=== PATIENT | male | born 1940 | race Caucasian/White ===

== ENCOUNTER 2020-09-29 05:34 | Day surgery (SDC) | payer OTHER ==
[2020-09-29] MEDS ORDERED: Lactated Ringers 1,000 ML IV SCH (06:00)
[2020-09-29] MEDS ORDERED: Nozin Nasal Sanitizer NASBOTH SCH (06:00)
[2020-09-29] MEDS ORDERED: Bupivacaine 0.5% 30 ML SDV ONE (06:43)
[2020-09-29] MEDS ORDERED: Povidone-Iodine 10% Soln 118.25 ML Bottle ONE (06:43)
[2020-09-29] MEDS ORDERED: fentaNYL 100 MCG/2 ML SDV ONE (07:24)
[2020-09-29] MEDS ORDERED: Midazolam 1 MG/ML 2 ML SDV ONE (07:24)
[2020-09-29] MEDS ORDERED: Propofol 200 MG/20 ML SDV ONE (07:25)
[2020-09-29] MEDS ORDERED: ceFAZolin 2 GM in Premix Bag 1 BAG IV ONE (07:30)
[2020-09-29] MEDS ORDERED: ceFAZolin 2 GM in Sodium Chloride 0.9% 50 ML IV ONE (07:30)
[2020-09-29] MEDS: Tranexamic Acid 1,000 MG in Sodium Chloride 0.9% 50 ML IV ONE ×2 (07:38→12:28)
[2020-09-29] MEDS ORDERED: Lactated Ringers 1,000 ML ONE (08:03)
[2020-09-29] MEDS ORDERED: Sugammadex Sodium 200 MG/2 ML VIAL ONE (09:01)
[2020-09-29] MEDS ORDERED: Magnesium Hydroxide 400 MG/5 ML Susp 30 ML Cup PO PRN (09:14)
[2020-09-29] MEDS ORDERED: Morphine 2 MG/ML SYRINGE IVPUSH PRN (09:14)
[2020-09-29] MEDS ORDERED: Docusate Sodium 100 MG Cap PO PRN (09:14)
[2020-09-29] MEDS ORDERED: Acetaminophen/HYDROcodone 325-5 MG Tab PO PRN (09:14)
[2020-09-29] MEDS ORDERED: Ondansetron 4 MG/2 ML SDV IVPUSH PRN (09:14)
[2020-09-29] MEDS ORDERED: Acetaminophen 325 MG Tab PO PRN (09:14)
[2020-09-29] MEDS ORDERED: ceFAZolin 1 GM in Sodium Chloride 0.9% 50 ML IV SCH (09:15)
[2020-09-29] MEDS ORDERED: Sodium Chloride 0.9% 1,000 ML IV SCH (09:15)
[2020-09-29] MEDS ORDERED: Albuterol 0.083% 2.5 MG/3 ML Neb Soln NEB PRN (09:21)
[2020-09-29] MEDS ORDERED: [UNRECOGNIZED DRUG - OTHER] PO PRN (09:21)
[2020-09-29] MEDS ORDERED: CARBOXYMETHYLCELLULOSE EYEBOTH PRN (09:21)
--- NOTE | 2020-09-29 09:35 | CR ---
Knee 1V or 2V Lt CLINICAL HISTORY: Postop FINDINGS: Patient has undergone a medial left knee hemiarthroplasty. Components appear well seated. There is some intra-articular and subcutaneous air. There is some patellar and periarticular spurring. IMPRESSION: STATUS post recent medial knee hemiarthroplasty Osteoarthritic changes
[2020-09-29] MEDS ORDERED: Hypromellose 0.3% Ophth Soln 15 ML Bottle EYEBOTH PRN (10:36)
[2020-09-29] MEDS ORDERED: Pseudoephedrine 30 MG Tab PO PRN (11:00)
[2020-09-29] MEDS: Acetaminophen/oxyCODONE 325-5 MG Tab PO PRN ×3 (11:31→20:27)
[2020-09-29] MEDS: Albuterol 8 GM Inhaler INH SCH ×3 (11:33→20:21)
[2020-09-29] MEDS: Diltiazem 180 MG Cap.CD PO SCH (12:45)
[2020-09-29] MEDS: Ipratropium 0.06% Nasal Spray 15 ML Bottle NASBOTH SCH ×2 (14:19→20:16)
[2020-09-29] MEDS: ceFAZolin 1 GM in Premix Bag 1 BAG IV SCH ×2 (14:21→22:23)
[2020-09-29] MEDS: Hypromellose 0.3% Ophth Soln 15 ML Bottle EYEBOTH SCH ×2 (16:21→22:23)
[2020-09-29] MEDS: Nozin Nasal Sanitizer NASBOTH SCH (20:15)
[2020-09-29] MEDS: Docusate Sodium 100 MG Cap PO SCH (20:17)
[2020-09-29] MEDS: Metoprolol Tartrate 25 MG Tab PO SCH (20:18)
[2020-09-29] MEDS: Famotidine 20 MG Tab PO SCH (20:20)
[2020-09-29] MEDS ORDERED: Simvastatin 20 MG Tab PO SCH (21:00)
[2020-09-29] MEDS ORDERED: Montelukast 10 MG Tab PO SCH (21:00)
[2020-09-30] MEDS: Acetaminophen/oxyCODONE 325-5 MG Tab PO PRN ×2 (05:15→11:33)
[2020-09-30] MEDS: Hypromellose 0.3% Ophth Soln 15 ML Bottle EYEBOTH SCH ×2 (05:28→09:40)
[2020-09-30] MEDS: ceFAZolin 1 GM in Premix Bag 1 BAG IV SCH (05:34)
[2020-09-30] MEDS ORDERED: Tiotropium Bromide 4 GM Inhalation Spray (2.5mcg/1 dose; 10 doses) INH SCH (07:00)
[2020-09-30] MEDS: Albuterol 8 GM Inhaler INH SCH ×3 (07:19→14:39)
[2020-09-30] MEDS ORDERED: Enoxaparin 30 MG/0.3 ML Syringe SUBCUT SCH (09:00)
[2020-09-30] MEDS ORDERED: Hydrochlorothiazide 25 MG Tab PO SCH (09:00)
[2020-09-30] MEDS ORDERED: DILTIAZEM 120 MG PO SCH (09:00)
[2020-09-30] MEDS ORDERED: guaiFENesin 600 MG Tab.ER PO SCH (09:00)
[2020-09-30] MEDS ORDERED: Non-Formulary Medication 1 Each (Lisinopril [Lisinopril] 40 MG Tablet) PO SCH (09:00)
[2020-09-30] MEDS ORDERED: Loratadine 10 MG Tab PO SCH (09:00)
[2020-09-30] MEDS ORDERED: LECITHIN PO SCH (09:00)
[2020-09-30] MEDS ORDERED: Isosorbide Mononitrate 30 MG Tab.ER PO SCH (09:00)
[2020-09-30] MEDS ORDERED: Fluticasone Propionate Nasal Spray 16 GM Bottle NASBOTH SCH (09:00)
[2020-09-30] MEDS ORDERED: Non-Formulary Medication 1 Each (Isosorbide Mononitrate [Imdur] 60 MG Tab.Er) PO SCH (09:00)
[2020-09-30] MEDS ORDERED: Lisinopril 20 MG Tab PO SCH (09:00)
[2020-09-30] MEDS: Metoprolol Tartrate 25 MG Tab PO SCH (09:35)
[2020-09-30] MEDS: Famotidine 20 MG Tab PO SCH (09:35)
[2020-09-30] MEDS: Diltiazem 180 MG Cap.CD PO SCH (09:38)
[2020-09-30] MEDS: Docusate Sodium 100 MG Cap PO SCH (09:39)
[2020-09-30] MEDS: Ipratropium 0.06% Nasal Spray 15 ML Bottle NASBOTH SCH ×2 (09:40→14:59)
[2020-09-30] MEDS: Nozin Nasal Sanitizer NASBOTH SCH (09:41)
--- NOTE | 2020-09-30 12:22 | PCM.DCSUM1 ---
Discharge Summary - Hospital Course Brief History: Patient is a pleasant 79 y/o male, who had worsening left knee pain from osteoarthritis over the past 5 years. Failed conservative management with OTC medications and injections. After reviewing clinical symptoms of mostly medial pain in knee joint and radiographic findings consistent with DJD with medial collapse, patient was deemed a good candidate for a partial knee replacement of the medial compartment. Patient elected to undergo partial replacement, with agreement to convert to total knee replacement if cartilage damage was more severe than what xrays had shown. Intra-operative decision made to proceed with medial compartment partial replacement, as other compartments were well persevered. Diagnosis: Stroke: No Modified [place] Scale: No Symptoms at All Modified [place] Scale Score: 0 - Discharge Data Discharge Date: 09/30/20 Discharge Disposition: Home, W Home Health Agency 06 Condition: Good - Referral to Home Health Date of Face to Face Encounter: 09/30/20 Reason for Homebound Status: Motivated to go home; able to ambulate with FWW safely and perform ADLs fairly independently. Primary Care Physician: Abrahan Berumen PA-C Skilled Need: physical therapy: s/p L partial knee replacement. Work on ROM of knee, strengthening, progressing ambulation status. occupational therapy: assist as needed with ADLs, dressing changes - Discharge Diagnosis/Problem(s) (1) Status post left partial knee replacement SNOMED Code(s): 370083580, [id number], [id number], [id number] ICD Code: Z96.652 - PRESENCE OF LEFT ARTIFICIAL KNEE JOINT Status: Acute Current Visit: Yes - Patient Summary/Data Operative Procedure(s) Performed: left partial knee replacement, medial compartment Consults: Consultations 09/29/20 09:14 Consult to Case Management/Smash Hand [CONS] Routine Comment: Physician Instructions: Service(s) to be Consulted: Case Management Reason for Consult: Plan for Discharge OT Evaluation and Treatment [CONS] Routine Please Evaluate and Treat. OT Reason for Consult: ADL's Special Instructions: s/p L partial knee replacement This query below is only for informational purposes and is not editable. PT Evaluation and Treatment [CONS] Routine Please Evaluate and Treat. PT Reason for Consult: Post op Ortho Surgery Special Instructions: s/p L partial knee replacement This query below is only for informational purposes and is not editable. PT Evaluation and Treatment [CONS] Routine Please Evaluate and Treat. PT Reason for Consult: Post op Ortho Surgery Knee Pending Discharge: Yes, 1- 2 days Special Instructions: Schedule first outpatient PT appointment in 3-5 day post discharge. This query below is only for informational purposes and is not editable. Hospital Course: Patient is a pleasant 79 y/o male, s/p left partial knee replacement (medial compartment), POD#1. Patient tolerated surgery well with no complications. Endorsed minimal pain in left knee at rest, increased pain with activity and ambulation. Reports pain is well managed at this time with Percocet. Denied numbness or tingling in L LE. Slept well overnight with no disruptions from pain. Following surgery yesterday afternoon, worked with physical therapy on ROM and ambulation with FWW. Flexion achieved to 78 degrees and ambulated 100+ft with FWW multiple times with staff yesterday following surgery. Ambulated over 200 ft with FWW this morning. Patient successfully and safely completed stairs this afternoon. Completing ADLs with minimal assistance. Patient remains hemodynamically stable; some hypertension following surgery. Home BP medications resumed; pain likely also contributing to elevated BPs. Patient has been tolerating regular diet well, no nausea/emesis. Graham catheter discontinued POD#1. IV Saline locked evening of surgery. Patient did have a leak at the inferior aspect of his incision following physical therapy on POD#1; incision remains intact. Drainage has since stopped. New dressing and MAYA wrap applied over L knee. Exam: L knee incision intact. No active drainage. No surrounding erythema nor ecchymosis. Mild warmth to touch. Mild L pedal edema. L LE distal neurovascular intact. - Patient Instructions Diet: Usual Diet as Tolerated Activity: Apply Ice, Full Weight Bearing, No Strenuous Activities Driving: Do Not Drive Showering/Bathing: Shower in AM Wound/Incision Care: Keep Operative Site/Wound Site Clean and Dry, Change Dressing Daily Notify Provider of: Fever, Increased Pain, Swelling and Redness, Drainage - Discharge Plan *PRESCRIPTION DRUG MONITORING PROGRAM REVIEWED*: Yes *COPY OF PRESCRIPTION DRUG MONITORING REPORT IN PATIENT VANESSA: Not Applicable Prescriptions/Med Rec: Acetaminophen/oxyCODONE [Percocet 325-5 MG] 1 - 2 each PO Q6HR PRN 7 Days #50 tab PRN Reason: Pain (Severe 7-10) Home Medications: Home Meds Albuterol Sulfate 2.5 mg IH Q6H PRN 09/01/20 [History] Albuterol Sulfate [Albuterol Sulfate Hfa] 2 puff IH QID 09/01/20 [History] Carboxymethylcellulose Sodium [Lubricant Eye Drops] 1 drop EYEBOTH DAILY PRN 09/01/20 [History] Cimetidine 300 mg PO BID 09/01/20 [History] Dextran/Hypromellose/Glycerin [Genteal Tears 0.1%-0.2%-0.3%] 1 drop EYEBOTH QID 09/01/20 [History] Diltiazem [Cardizem] 180 mg PO DAILY 09/01/20 [History] Fexofenadine HCl 180 mg PO DAILY 09/01/20 [History] Fluticasone Propionate 16 gm NASBOTH DAILY 09/01/20 [History] Ipratropium [place] 2 spray NASBOTH TID 09/01/20 [History] Isosorbide Mononitrate [Imdur] 30 mg PO DAILY 09/01/20 [History] Lidocaine 5% 1 applic TOP Q2H PRN 09/01/20 [History] Metoprolol Tartrate 12.5 mg PO BID 09/01/20 [History] Montelukast [Singulair] 10 mg PO DAILY 09/01/20 [History] Simvastatin 80 mg PO DAILY 09/01/20 [History] Tiotropium [Spiriva] 18 mcg INH DAILY 09/01/20 [History] lisinopriL [Lisinopril] 20 mg PO DAILY 09/01/20 [History] Ascorbic Acid [Vitamin C] 100 mg PO DAILY 09/24/20 [History] Flaxseed Oil [Flax Oil] 1,000 mg PO DAILY 09/24/20 [History] Lecithin 420 mg PO DAILY 09/24/20 [History] Multivitamin [Multi-Vitamin Daily] 1 each PO DAILY 09/24/20 [History] Iota-3/DHA/Epa/Fish Oil [Iota-3 EC Softgel] 1,000 mg PO DAILY 09/24/20 [History] Phenylephrine HCl [Sudafed PE] 10 mg PO BID PRN 09/24/20 [History] Triprolidine/PE/Dm/Acetamin/GG [Mucinex Fast-Max Cold-Nghtshft] 2 tab PO TID PRN 09/24/20 [History] Vitamin E 200 unit PO DAILY 09/24/20 [History] Zinc Gluconate [Zinc] 100 mg PO DAILY 09/24/20 [History] Aspirin [Adult Low Dose Aspirin EC] 81 mg PO BID 09/29/20 [History] guaiFENesin [Guaifenesin] 400 mg PO DAILY 09/29/20 [History] hydroCHLOROthiazide [Hydrochlorothiazide] 25 mg PO DAILY 09/29/20 [History] Acetaminophen/oxyCODONE [Percocet 325-5 MG] 1 - 2 each PO Q6HR PRN 7 Days #50 tab 09/30/20 [Rx] Oxygen Therapy Mode: Room Air Patient Handouts: Incision Care, Adult, [id number], Preventing Problems After Surgery, Preventing Constipation After Surgery, Partial Knee Replacement, Care After Referrals: Alfredo Blount MD [Physician] - 10/14/20 1:00 pm (Please arrive 15 minutes to register for your appointment.) - Discharge Summary/Plan Comment DC Time >30 min.: No Discharge Summary/Plan Comment: * Anticipate discharge to home with home health referral for [facility] OT services. * Prescription sent for 1 week supply of pain medications. * Education provided to patient on SSIs and DVT/VTEs. Follow up parameters discussed with patient. * Patient to increase home aspirin frequency to BID, rather than daily for DVT/VTE prophylaxis. * Patient to continue with Nozin Nasal Waldo. * Dressing change was performed POD#1 by orthopedic provider prior to discharge. * Follow up apt scheduled with orthopedics in 2 weeks. Encouraged to call if concerns or questions arise prior to scheduled apt. - General Info Date of Service: 09/30/20 Admission Dx/Problem (Free Text: left knee osteoarthritis Functional Status: Reports: Pain Controlled, Tolerating Diet, Ambulating (with FWW ), Urinating - Review of Systems General: Reports: No Symptoms HEENT: Reports: No Symptoms Pulmonary: Reports: No Symptoms Cardiovascular: Reports: No Symptoms Gastrointestinal: Reports: No Symptoms Genitourinary: Reports: No Symptoms Musculoskeletal: Reports: Leg Pain, Joint Pain (left knee ) Neurological: Reports: No Symptoms Psychiatric: Reports: No Symptoms - Patient Data Vitals - Most Recent: Last Vital Signs Temp 97.4 F 09/30/20 10:02 Pulse 105 H 09/30/20 10:02 Resp 18 09/30/20 10:02 BP 105/71 09/30/20 10:02 Pulse Ox 95 09/30/20 10:02 Weight - Most Recent: 276 lb 12.8 oz I&O - Last 24 hours: Intake & Output 09/29/20 09/30/20 09/30/20 22:59 06:59 14:59 Intake Total 740 250 300 Output Total 375 350 200 Balance 365 -100 100 Lab Results - Last 24 hrs: Laboratory Results - last 24 hr 09/30/20 Range/Units 05:46 WBC 12.9 H (4.5-11.0) K/uL RBC 4.62 (4.30-5.90) M/uL Hgb 13.3 (12.0-15.0) g/dL Hct 40.3 (40.0-54.0) % MCV 87 (80-98) fL MCH 29 (27-31) pg MCHC 33 (32-36) % Plt Count 144 L (150-400) K/uL Med Orders - Current: Current Medications Acetaminophen (Acetaminophen 325 Mg Tab) 650 mg PO Q4H PRN PRN Reason: Pain/Fever Hydrocodone Bitart/Acetaminophen (Acetaminophen/Hydrocodone 325-5 Mg Tab) 1 tab PO Q4H PRN PRN Reason: Pain (mild 1-3) Albuterol (Albuterol 0.083% 2.5 Mg/3 Ml Neb Soln) 2.5 mg NEB Q6H PRN PRN Reason: Shortness of Breath Albuterol (Albuterol 8 Gm Inhaler) 0 gm INH QIDRT [facility] Last Admin: 09/30/20 10:56 Dose: 2 puff Documented by: Artificial Tears (Hypromellose 0.3% Ophth Soln 15 Ml Bottle) 0 ml EYEBOTH QID [facility] Last Admin: 09/30/20 09:40 Dose: 1 drop Documented by: Artificial Tears (Hypromellose 0.3% Ophth Soln 15 Ml Bottle) 0 ml EYEBOTH DAILY PRN PRN Reason: dry eyes Bandage/Support Products (Nozin Nasal Filter Tip Catcher) 1 applic NASBOTH BID [facility] Last Admin: 09/30/20 09:41 Dose: 1 applic Documented by: Diltiazem HCl (Diltiazem 180 Mg Cap.Cd) 180 mg PO DAILY [facility] Last Admin: 09/30/20 09:38 Dose: 180 mg Documented by: Docusate Sodium (Docusate Sodium 100 Mg Cap) 100 mg PO BID [facility] Last Admin: 09/30/20 09:39 Dose: 100 mg Documented by: Enoxaparin Sodium (Enoxaparin 30 Mg/0.3 Ml Syringe) 30 mg SUBCUT DAILY [facility] Last Admin: 09/30/20 09:40 Dose: 30 mg Documented by: Famotidine (Famotidine 20 Mg Tab) 20 mg PO BID [facility] Last Admin: 09/30/20 09:35 Dose: 20 mg Documented by: Fluticasone Propionate (Fluticasone Propionate Nasal Waldo 16 Gm Bottle) 0 gm NASBOTH DAILY [facility] Last Admin: 09/30/20 09:40 Dose: 1 spray Documented by: Guaifenesin (Guaifenesin 600 Mg Tab.Er) 600 mg PO DAILY [facility] Last Admin: 09/30/20 09:39 Dose: 600 mg Documented by: Hydrochlorothiazide (Hydrochlorothiazide 25 Mg Tab) 25 mg PO DAILY [facility] Last Admin: 09/30/20 09:39 Dose: 25 mg Documented by: Sodium Chloride (Normal Saline) 1,000 mls @ 125 mls/hr IV ASDIRECTED [facility] Ipratropium [place] (Ipratropium 0.06% Nasal Waldo 15 Ml Bottle) 0 ml NASBOTH TID [facility] Last Admin: 09/30/20 09:40 Dose: 2 spray Documented by: Isosorbide Mononitrate (Isosorbide Mononitrate 30 Mg Tab.Er) 30 mg PO DAILY [facility] Last Admin: 09/30/20 09:39 Dose: 30 mg Documented by: Lisinopril (Lisinopril 20 Mg Tab) 20 mg PO DAILY [facility] Last Admin: 09/30/20 09:39 Dose: 20 mg Documented by: Loratadine (Loratadine 10 Mg Tab) 10 mg PO DAILY [facility] Last Admin: 09/30/20 09:38 Dose: 10 mg Documented by: Magnesium Hydroxide (Magnesium Hydroxide 400 Mg/5 Ml Susp 30 Ml Cup) 30 ml PO BID PRN PRN Reason: Constipation Metoprolol Tartrate (Metoprolol Tartrate 25 Mg Tab) 12.5 mg PO BID [facility] Last Admin: 09/30/20 09:35 Dose: 12.5 mg Documented by: Montelukast Sodium (Montelukast 10 Mg Tab) 10 mg PO BEDTIME [facility] Last Admin: 09/29/20 20:21 Dose: 10 mg Documented by: Morphine Sulfate (Morphine 2 Mg/Ml Syringe) 1 mg IVPUSH Q2H PRN PRN Reason: Breakthrough Pain Lecithin Capsule (Ptom) 0 mg PO DAILY [facility] Last Admin: 09/30/20 11:35 Dose: Not Given Documented by: Mucinex Fast-Max (Cold-Ngh Ptom) 0 tab PO TID PRN PRN Reason: Cough Ondansetron HCl (Ondansetron 4 Mg/2 Ml Sdv) 4 mg IVPUSH Q4H PRN PRN Reason: Nausea/Vomiting Oxycodone/Acetaminophen (Acetaminophen/Oxycodone 325-5 Mg Tab) 1 - 2 tab PO Q4H PRN PRN Reason: Pain Last Admin: 09/30/20 11:33 Dose: 1 tab Documented by: Pseudoephedrine HCl (Pseudoephedrine 30 Mg Tab) 30 mg PO BID PRN PRN Reason: Allergies Simvastatin (Simvastatin 20 Mg Tab) 80 mg PO BEDTIME [facility] Last Admin: 09/29/20 20:22 Dose: 80 mg Documented by: Tiotropium [place] (Tiotropium [place] 4 Gm Inhalation Waldo (2.5mcg/1 Dose; 10 Doses)) 0 gm INH DAILY@0700 [facility] Last Admin: 09/30/20 07:18 Dose: 2 gm Documented by: Discontinued Medications Bandage/Support Products (Nozin Nasal Filter Tip Catcher) 1 applic NASBOTH BID [facility] Last Admin: 09/29/20 06:51 Dose: 1 applic Documented by: Bupivacaine HCl (Bupivacaine 0.5% 30 Ml Sdv) Confirm Administered Dose 30 ml .ROUTE .STK-MED ONE Stop: 09/29/20 06:44 Docusate Sodium (Docusate Sodium 100 Mg Cap) 100 mg PO BID PRN PRN Reason: Constipation Fentanyl (Fentanyl 100 Mcg/2 Ml Sdv) Confirm Administered Dose 100 mcg .ROUTE .STK-MED ONE Stop: 09/29/20 07:25 Lactated Ringer's (Ringers, Lactated) 1,000 mls @ 75 mls/hr IV ASDIRECTED [facility] Last Admin: 09/29/20 06:08 Dose: 75 mls/hr Documented by: Cefazolin Sodium/Dextrose 2 gm (/ Premix) 50 mls @ 100 mls/hr IV ONETIME ONE Stop: 09/29/20 07:59 Last Admin: 09/29/20 07:38 Dose: 100 mls/hr Documented by: Tranexamic Acid 1,000 mg/ (Sodium Chloride) 60 mls @ 240 mls/hr IV ONETIME ONE Stop: 09/29/20 07:44 Last Admin: 09/29/20 12:28 Dose: Not Given Documented by: Lactated Ringer's (Ringers, Lactated) Confirm Administered Dose 1,000 mls @ as directed .ROUTE .STK-MED ONE Stop: 09/29/20 08:04 Cefazolin Sodium/Dextrose 1 gm (/ Premix) 50 mls @ 100 mls/hr IV Q8H [facility] Stop: 09/30/20 06:59 Last Admin: 09/30/20 05:34 Dose: 100 mls/hr Documented by: Midazolam HCl (Midazolam 1 Mg/Ml 2 Ml Sdv) Confirm Administered Dose 2 mg .ROUTE .STK-MED ONE Stop: 09/29/20 07:25 Povidone Iodine (Povidone-Iodine 10% Soln 118.25 Ml Bottle) Confirm Administered Dose 1 ml .ROUTE .STK-MED ONE Stop: 09/29/20 06:44 Last Admin: 09/29/20 08:33 Dose: 40 ml Documented by: Propofol (Propofol 200 Mg/20 Ml Sdv) Confirm Administered Dose 200 mg .ROUTE .STK-MED ONE Stop: 09/29/20 07:26 Sugammadex Sodium (Sugammadex Sodium 200 Mg/2 Ml Vial) Confirm Administered Dose 200 mg .ROUTE .STK-MED ONE Stop: 09/29/20 09:02 - Exam General: Reports: Alert, Oriented, Cooperative, No Acute Distress Extremities: Normal Capillary Refill, Leg Pain (left ), Increased Warmth Skin: Reports: Dry, Intact Wound/Incisions: Reports: Healing Well, Dressing Dry and Intact Neurological: Reports: No New Focal Deficit Psy/Mental Status: Reports: Alert, Normal Affect, Normal Mood
--- NOTE | 2020-10-15 09:54 | PCM.SN.2 ---
- Free Text/Narrative Note: Spoke with patient's girlfriend, Charley, on the phone at 0900 this morning regarding Jf's incision. She had called the day before and was concerned about some serosanguineous drainage and redness near the bottom of the incision. Upon talking with her this morning, she states there has been no drainage, purulent nor serosanguineous, from the incision since yesterday and that the area of redness is going down in size. No new or expanding areas of erythema. Denied warmth to touch. Endorsed swelling of the knee. Charley also was wondering about what Jf can take for constipation. Has been drinking prune juice 2x/day. Recommended adding either Citrucel, MiraLax, or Dulcolax. Charlye also confirmed that [facility] called yesterday and will be coming out to the house this afternoon to work with Jf at 1300. Reviewed signs of SSIs with Charley on the phone and follow up parameters to call back if surrounding incision erythema worsens, has purulent drainage, area around is hot to touch, or Jf develops fevers. Charley expressed understanding of the above.
--- NOTE | 2020-10-15 21:36 | OR ---
DATE OF PROCEDURE: 09/29/2020 SURGEON: Alfredo Blount MD PREOPERATIVE DIAGNOSIS: Osteoarthritis, left knee, medial compartment. POSTOPERATIVE DIAGNOSIS: Osteoarthritis, left knee, medial compartment. PROCEDURE: Left medial unicompartmental arthroplasty using [employer] ZUK components with a size E femur, 4 tibia, and 8 mm polyethylene. AUTOMATIC I THREADING MACHINE FEEDER: CALVIN Cisneros ANESTHESIA: Spinal with sedation. INDICATIONS: Jf is a very pleasant 79-year-old gentleman with history of progressive pain in his left knee. He has failed conservative treatment. Examination x-ray findings consistent with osteoarthritis of the left knee with medial compartment collapse. Now presents for a medial unicompartmental arthroplasty. Risks, benefits, and potential complications of the procedure were discussed. DESCRIPTION OF PROCEDURE: After adequate anesthesia was obtained, the patient placed supine with a tourniquet about the left upper thigh. Left leg was prepped and draped in a sterile fashion. Leg was exsanguinated and tourniquet inflated to 300 mmHg pressure. A longitudinal incision was made just medial of midline from the tibial tubercle to the superior pole of patella. It was carried down to the subcutaneous tissues and a medial parapatellar arthrotomy was performed without entering into the VMO. Medial compartment is exposed revealing significant osteoarthritis. Anterior horn of the medial meniscus was excised. The knee was flexed and the anterior lip of the tibial plateau is resected with an oscillating saw. The knee was extended and extramedullary alignment jig was then placed. This was secured to the tibia and the femur. Distal femur is cut and this portion of the guide was removed. The knee is flexed and the tibial plateau was then resected using combination of oscillating reciprocating saws. The guide was removed and the remaining meniscus was excised. The femur is sized to an E component. Cutting jig was secured and remaining cuts were made including drill holes for the pegs. The tibia was then sized to a #4 component. Base plates tapped into position and held temporarily with a small pin. Peg holes are drilled. A trial reduction was then done with an 8 mm insert, which provided full extension, excellent flexion, and good balance in both flexion and extension with approximately a 2 mm gap. Trials were removed and the knee was fully irrigated. The bone surfaces were dried and components were cemented in place. Excess cement was removed. The knee was held in full extension as the cement cured. Trial is again done with an 8 mm insert. This provided very good balance in flexion and extension with a 2 mm gap and full range of motion. The trials were removed. Final polyethylene was snapped into position. The knee is irrigated with a dilute Betadine solution followed by a pulse lavage. Knee was then closed with a #2 Ethibond in a running fashion. Skin was closed with 2-0 Vicryl in a running 3-0 Monocryl. Steri-Strips were applied. Light compressive dressing was then placed. The patient tolerated procedure very well. There were no complications and taken from the operating room in stable condition. Alfredo Blount MD /[id number]
== END 2020-09-30 16:30 | disposition home health service (06) ==
LOC: JP.SDS 05:34 → JP.MS 09:14 → JP.SDS 09-30 16:30
PROVIDERS: ATTEND Specialist
DX: M17.12 Unilateral primary osteoarthritis, left knee (principal); I10 Essential (primary) hypertension; I25.10 Atherosclerotic heart disease of native coronary artery without angina pectoris; J44.9 Chronic obstructive pulmonary disease, unspecified; E11.9 Type 2 diabetes mellitus without complications; E78.5 Hyperlipidemia, unspecified; G47.33 Obstructive sleep apnea (adult) (pediatric); E05.90 Thyrotoxicosis, unspecified without thyrotoxic crisis or storm; E66.01 Morbid (severe) obesity due to excess calories; Z79.899 Other long term (current) drug therapy; Z85.46 Personal history of malignant neoplasm of prostate; Z86.010 Personal history of colon polyps; Z87.891 Personal history of nicotine dependence; Z91.09 Other allergy status, other than to drugs and biological substances; Z98.890 Other specified postprocedural states
CPT/HCPCS: 27446; 36415; 73560; 85027; 86850; 86900; 86901; 94640; 97110; 97116; 97161; 97165; 97530; 97535; A9270; C1713; C1776; J0690; J1650; J2250; J2704; J3010; J7120; J3490

== ENCOUNTER 2021-12-31 16:27 | Observation (INO) | payer OTHER, MEDICARE ==
[2021-12-31 18:03] LABS: ESTIMATED GFR 61 mL/min (>60)
[2021-12-31 18:09] LABS: TROPONIN I HIGH SENSITIVITY 66.2 pg/mL (<=60.3)
[2021-12-31] MEDS ORDERED: Sodium Chloride 0.9% 1,000 ML IV SCH (20:15)
[2021-12-31 20:59] LABS: CORONAVIRUS COVID-19 NAA POSITIVE (NEGATIVE)
[2021-12-31] MEDS ORDERED: Ondansetron 4 MG Tab.DIS PO PRN (21:57)
[2021-12-31] MEDS ORDERED: Albuterol 0.083% 2.5 MG/3 ML Neb Soln INH PRN (21:57)
[2021-12-31] MEDS ORDERED: Acetaminophen/oxyCODONE 325-5 MG Tab PO PRN (21:57)
[2021-12-31] MEDS ORDERED: Sodium Chloride 0.9% 10 ML Syringe FLUSH PRN (21:57)
[2021-12-31] MEDS ORDERED: Bisacodyl 5 MG Tab PO PRN (21:57)
[2021-12-31] MEDS ORDERED: REMDESIVIR 200 MG in Sodium Chloride 0.9% 250 ML IV ONE (21:57)
[2021-12-31] MEDS ORDERED: Enoxaparin 40 MG/0.4 ML Syringe SUBCUT ONE (22:30)
[2021-12-31] MEDS ORDERED: HYPROMELLOSE 0.3% EYEBOTH PRN (22:36)
[2022-01-01] MEDS: Acetaminophen 325 MG Tab PO PRN ×2 (00:16→16:17)
[2022-01-01] MEDS: Albuterol 8 GM Inhaler INH SCH ×5 (00:17→23:00)
[2022-01-01] MEDS: Montelukast 10 MG **PTOM PO SCH ×2 (00:18→20:12)
[2022-01-01] MEDS: Metoprolol Tartrate 25 MG **PTOM PO SCH ×2 (00:18→20:22)
[2022-01-01] MEDS: HYPROMELLOSE 0.3% EYEBOTH SCH ×4 (05:37→23:00)
[2022-01-01] MEDS ORDERED: Tiotropium Bromide 4 GM Inhalation Spray (2.5mcg/1 dose; 10 doses) INH SCH (09:00)
[2022-01-01] MEDS ORDERED: atorvaSTATin 20 MG Tab PO SCH (09:00)
[2022-01-01] MEDS ORDERED: Enoxaparin 40 MG/0.4 ML Syringe SUBCUT SCH (09:00)
[2022-01-01] MEDS ORDERED: guaiFENesin 100 MG/5 ML Soln 10 ML UD Cup PO SCH (09:00)
[2022-01-01] MEDS ORDERED: Famotidine 20 MG Tab PO SCH (09:00)
[2022-01-01] MEDS: Tiotropium Bromide 4 GM Inhalation Spray (2.5mcg/1 dose; 10 doses) INH SCH (09:00)
[2022-01-01] MEDS ORDERED: Fluticasone NASAL Spray 16 GM Bottle NASBOTH SCH (09:00)
[2022-01-01] MEDS ORDERED: REMDESIVIR 100 MG in Sodium Chloride 0.9% 100 ML IV SCH (09:00)
[2022-01-01] MEDS ORDERED: Lisinopril 20 MG Tab PO SCH ×2 (09:00)
[2022-01-01] MEDS ORDERED: DILTIAZEM 120 MG PO SCH (09:00)
[2022-01-01] MEDS ORDERED: ISOSORBIDE MONONITRATE 30 MG PO SCH (09:00)
[2022-01-01] MEDS ORDERED: Ipratropium 0.06% Nasal Spray 15 ML Bottle NASBOTH SCH (09:00)
[2022-01-01] MEDS ORDERED: Hydrochlorothiazide 25 MG Tab PO SCH (09:00)
[2022-01-01] MEDS: Furosemide 20 MG **PTOM PO SCH (13:26)
[2022-01-01] MEDS: ASCORBIC ACID 500 MG PO SCH (13:28)
[2022-01-01] MEDS: Multivitamins with Iron/Calcium/Folic Acid/Minerals **PTOM PO SCH (13:28)
[2022-01-01] MEDS: Enoxaparin 40 MG/0.4 ML Syringe SUBCUT SCH (13:30)
[2022-01-01] MEDS: GUAIFENESIN 200 MG PO SCH (13:31)
[2022-01-01] MEDS: ISOSORBIDE MONONITRATE 60 MG PO SCH (13:32)
[2022-01-01] MEDS: LISINOPRIL 40MG **PTOM PO SCH (13:33)
[2022-01-01] MEDS: IPRATROPIUM 0.03% NASBOTH SCH ×2 (13:33→20:15)
[2022-01-01] MEDS: SIMVASTATIN 80 MG PO SCH (13:33)
[2022-01-01] MEDS: FLUTICASONE NASBOTH SCH (13:34)
[2022-01-01] MEDS: REMDESIVIR 100 MG in Sodium Chloride 0.9% 100 ML IV SCH (17:17)
[2022-01-01] MEDS: Docusate Sodium 100 MG Cap PO PRN (17:54)
[2022-01-01] MEDS ORDERED: Montelukast 10 MG Tab PO SCH (21:00)
[2022-01-02] MEDS: Acetaminophen 325 MG Tab PO PRN (00:29)
[2022-01-02 05:24] LABS: ESTIMATED GFR 76 mL/min (>60)
[2022-01-02] MEDS: HYPROMELLOSE 0.3% EYEBOTH SCH ×5 (06:03→22:21)
[2022-01-02] MEDS: Albuterol 8 GM Inhaler INH SCH ×4 (06:03→22:22)
[2022-01-02] MEDS: Tiotropium Bromide 4 GM Inhalation Spray (2.5mcg/1 dose; 10 doses) INH SCH (07:07)
[2022-01-02] MEDS: IPRATROPIUM 0.03% NASBOTH SCH ×3 (08:34→20:11)
[2022-01-02] MEDS: FLUTICASONE NASBOTH SCH (08:35)
[2022-01-02] MEDS: Furosemide 20 MG **PTOM PO SCH (08:35)
[2022-01-02] MEDS: ISOSORBIDE MONONITRATE 60 MG PO SCH (08:36)
[2022-01-02] MEDS: LISINOPRIL 40MG **PTOM PO SCH (08:36)
[2022-01-02] MEDS: SIMVASTATIN 80 MG PO SCH (08:38)
[2022-01-02] MEDS: ASCORBIC ACID 500 MG PO SCH (08:38)
[2022-01-02] MEDS: Metoprolol Tartrate 25 MG **PTOM PO SCH ×2 (08:39→20:12)
[2022-01-02] MEDS: GUAIFENESIN 200 MG PO SCH (08:39)
[2022-01-02] MEDS: Multivitamins with Iron/Calcium/Folic Acid/Minerals **PTOM PO SCH (08:39)
[2022-01-02] MEDS: Docusate Sodium 100 MG Cap PO PRN (08:43)
[2022-01-02] MEDS: Enoxaparin 40 MG/0.4 ML Syringe SUBCUT SCH (12:09)
[2022-01-02] MEDS: REMDESIVIR 100 MG in Sodium Chloride 0.9% 100 ML IV SCH (17:23)
[2022-01-02] MEDS: Montelukast 10 MG **PTOM PO SCH (20:14)
[2022-01-03] MEDS: Albuterol 8 GM Inhaler INH SCH ×3 (05:46→16:24)
[2022-01-03] MEDS: HYPROMELLOSE 0.3% EYEBOTH SCH ×3 (05:46→16:24)
[2022-01-03] MEDS: Tiotropium Bromide 4 GM Inhalation Spray (2.5mcg/1 dose; 10 doses) INH SCH (07:00)
[2022-01-03] MEDS: Furosemide 20 MG **PTOM PO SCH (08:21)
[2022-01-03] MEDS: FLUTICASONE NASBOTH SCH (08:21)
[2022-01-03] MEDS: IPRATROPIUM 0.03% NASBOTH SCH ×2 (08:21→13:10)
[2022-01-03] MEDS: ISOSORBIDE MONONITRATE 60 MG PO SCH (08:22)
[2022-01-03] MEDS: GUAIFENESIN 200 MG PO SCH (08:22)
[2022-01-03] MEDS: Metoprolol Tartrate 25 MG **PTOM PO SCH (08:22)
[2022-01-03] MEDS: LISINOPRIL 40MG **PTOM PO SCH (08:23)
[2022-01-03] MEDS: Multivitamins with Iron/Calcium/Folic Acid/Minerals **PTOM PO SCH (08:23)
[2022-01-03] MEDS: ASCORBIC ACID 500 MG PO SCH (08:23)
[2022-01-03] MEDS: Enoxaparin 40 MG/0.4 ML Syringe SUBCUT SCH (12:18)
== END 2022-01-03 19:35 | disposition home or self-care (01) ==
LOC: JP.ED 16:27 → JP.ICU 21:23
PROVIDERS: ADMIT Internal Medicine; ATTEND Internal Medicine
DX: U07.1 COVID-19 (principal); J42 Unspecified chronic bronchitis; J84.10 Pulmonary fibrosis, unspecified; I49.3 Ventricular premature depolarization; I48.91 Unspecified atrial fibrillation; I45.10 Unspecified right bundle-branch block; I10 Essential (primary) hypertension; R53.1 Weakness; E78.00 Pure hypercholesterolemia, unspecified; J18.9 Pneumonia, unspecified organism; I82.409 Acute embolism and thrombosis of unspecified deep veins of unspecified lower extremity; G47.30 Sleep apnea, unspecified; E66.9 Obesity, unspecified; Z68.30 Body mass index [BMI] 30.0-30.9, adult; Z79.899 Other long term (current) drug therapy; Z79.51 Long term (current) use of inhaled steroids; Z96.659 Presence of unspecified artificial knee joint; Z85.46 Personal history of malignant neoplasm of prostate; Z79.02 Long term (current) use of antithrombotics/antiplatelets; Z98.890 Other specified postprocedural states
CPT/HCPCS: 0241U; 36415; 70450; 71045; 80048; 80053; 80076; 81001; 82728; 83605; 83615; 84145; 84484; 85025; 85379; 85610; 86140; 93005; 93010; 94640; 96360; 96361; 96365; 96366; 96372; 97110; 97116; 97161; 99217; 99219; 99225; 99284; 99285; A9270; G0378; J1650; J3490; J7030; J7050

== ENCOUNTER 2022-05-19 18:33 | Emergency (ER) | payer OTHER, MEDICARE | END 2022-05-19 20:55 | disposition home or self-care (01) | LOC: JP.ED 18:33 | DX: S50.02XA Contusion of left elbow, initial encounter (principal); I11.0 Hypertensive heart disease with heart failure; I50.9 Heart failure, unspecified; I25.10 Atherosclerotic heart disease of native coronary artery without angina pectoris; E66.9 Obesity, unspecified; Z68.34 Body mass index [BMI] 34.0-34.9, adult; Z79.899 Other long term (current) drug therapy; Z79.82 Long term (current) use of aspirin; W00.9XXA Unspecified fall due to ice and snow, initial encounter | CPT/HCPCS: 73080-LT; 99283 ==

== ENCOUNTER 2022-09-02 13:16 | Emergency (ER) | payer MEDICARE, OTHER | END 2022-09-02 17:09 | disposition home or self-care (01) | LOC: JP.ED 13:16 | DX: S06.5X0A Traumatic subdural hemorrhage without loss of consciousness, initial encounter (principal); I48.91 Unspecified atrial fibrillation; I11.0 Hypertensive heart disease with heart failure; I50.9 Heart failure, unspecified; J44.9 Chronic obstructive pulmonary disease, unspecified; M19.90 Unspecified osteoarthritis, unspecified site; E66.9 Obesity, unspecified; Z68.35 Body mass index [BMI] 35.0-35.9, adult; Z91.048 Other nonmedicinal substance allergy status; Z79.899 Other long term (current) drug therapy; Z79.82 Long term (current) use of aspirin; Z87.891 Personal history of nicotine dependence; W19.XXXA Unspecified fall, initial encounter | CPT/HCPCS: 70450; 70450-26; 99283 ==

== ENCOUNTER 2022-09-29 15:04 | Emergency (ER) | payer MEDICARE, OTHER | END 2022-09-29 17:05 | disposition home or self-care (01) | LOC: JP.ED 15:04 | DX: G44.329 Chronic post-traumatic headache, not intractable (principal); S06.5XAA Traumatic subdural hemorrhage with loss of consciousness status unknown, initial encounter; I48.91 Unspecified atrial fibrillation; I25.10 Atherosclerotic heart disease of native coronary artery without angina pectoris; I11.0 Hypertensive heart disease with heart failure; I50.9 Heart failure, unspecified; E78.00 Pure hypercholesterolemia, unspecified; J44.9 Chronic obstructive pulmonary disease, unspecified; M19.90 Unspecified osteoarthritis, unspecified site; E66.9 Obesity, unspecified; Z68.36 Body mass index [BMI] 36.0-36.9, adult; Z91.048 Other nonmedicinal substance allergy status; Z79.899 Other long term (current) drug therapy; Z79.82 Long term (current) use of aspirin; W18.30XD Fall on same level, unspecified, subsequent encounter | CPT/HCPCS: 70450; 70450-26; 99284 ==

== ENCOUNTER 2022-10-03 15:43 | Emergency (ER) | payer OTHER | END 2022-10-03 18:18 | disposition home or self-care (01) | LOC: JP.ED 15:43 | DX: R42 Dizziness and giddiness (principal); I48.91 Unspecified atrial fibrillation; I25.10 Atherosclerotic heart disease of native coronary artery without angina pectoris; I11.0 Hypertensive heart disease with heart failure; I50.9 Heart failure, unspecified; J44.9 Chronic obstructive pulmonary disease, unspecified; E66.9 Obesity, unspecified; Z68.34 Body mass index [BMI] 34.0-34.9, adult; Z91.048 Other nonmedicinal substance allergy status; Z79.82 Long term (current) use of aspirin; Z79.899 Other long term (current) drug therapy | CPT/HCPCS: 36415; 80048; 84484; 85025; 99284 ==

== ENCOUNTER 2023-01-07 15:50 | Emergency (ER) | payer MEDICARE, OTHER ==
[2023-01-07 18:26] LABS: BASOPHILS ABSOLUTE AUTO 0.05 K/uL (0.00-0.10); BASOPHILS PERCENT AUTO 0.6 % (0.1-1.3); EOSINOPHILS ABSOLUTE AUTO 0.14 K/uL (0.00-0.40); EOSINOPHILS PERCENT AUTO 1.8 % (0.0-5.4); HEMATOCRIT 39.9 % (38.4-49.7); HEMOGLOBIN 13.3 g/dL (12.9-16.9); IMMATURE GRAN PERCENT AUTO 0.3 % (0.0-0.7); LYMPHOCYTES ABSOLUTE AUTO 1.57 K/uL (0.8-3.3); LYMPHOCYTES PERCENT AUTO 20.2 % (11.4-47.7); MEAN CORPUSCULAR HEMOGLOBIN 27.3 pg (31.6-35.5); MEAN CORPUSCULAR HGB CONC 33.3 g/dL (31.6-35.5); MEAN CORPUSCULAR VOLUME 81.9 fL (81.4-99.0); MONOCYTES ABSOLUTE AUTO 0.62 K/uL (0.20-0.90); NEUTROPHILS ABSOLUTE AUTO 5.37 K/uL (1.0-7.6); NEUTROPHILS PERCENT AUTO 69.1 % (40.0-78.1); PLATELET COUNT,PLT 156 K/uL (130-375); RED BLOOD CELL COUNT 4.87 M/uL (4.14-5.76); WHITE BLOOD CELL COUNT,WBC 7.8 K/uL (3.2-11.0)
[2023-01-07 18:27] LABS: IMMATURE GRAN ABSOLUTE AUTO 0.02 K/uL (0.00-0.23)
[2023-01-07 18:51] LABS: CALCIUM 10.2 mg/dL (8.5-10.1); CREATININE 1.1 mg/dL (0.8-1.3); EST CRCL DRUG DOSING (CG) 51.78 mL/min; POTASSIUM,K 4.1 mmol/L (3.6-5.2)
[2023-01-07 18:54] LABS: ANION GAP 10.1 mmol/L (5.0-14.0)
[2023-01-07] MEDS ORDERED: Ondansetron 4 MG Tab.DIS PO ONE (19:00)
[2023-01-07] MEDS ORDERED: Meclizine 25 MG Tab PO ONE (19:49)
== END 2023-01-07 20:26 | disposition home or self-care (01) ==
LOC: JP.ED 15:50
DX: R55 Syncope and collapse (principal); S09.90XA Unspecified injury of head, initial encounter; R29.6 Repeated falls; I48.91 Unspecified atrial fibrillation; I25.10 Atherosclerotic heart disease of native coronary artery without angina pectoris; I11.0 Hypertensive heart disease with heart failure; I50.9 Heart failure, unspecified; E78.00 Pure hypercholesterolemia, unspecified; J44.9 Chronic obstructive pulmonary disease, unspecified; M19.90 Unspecified osteoarthritis, unspecified site; E66.9 Obesity, unspecified; Z79.82 Long term (current) use of aspirin; Z91.09 Other allergy status, other than to drugs and biological substances; Z79.51 Long term (current) use of inhaled steroids; Z79.899 Other long term (current) drug therapy; Z68.35 Body mass index [BMI] 35.0-35.9, adult; W19.XXXA Unspecified fall, initial encounter
CPT/HCPCS: 36415; 70450; 70486; 80048; 84484; 85025; 93005; 99285; A9270; Q0162

== ENCOUNTER 2023-01-08 12:39 | Emergency (ER) | payer OTHER ==
[2023-01-08 14:23] LABS: APPEARANCE,URINE CLEAR (CLEAR); BILIRUBIN,URINE NEGATIVE (NEGATIVE); COLOR,URINE YELLOW (YELLOW); GLUCOSE,URINE NEGATIVE (NEGATIVE); KETONES,URINE NEGATIVE (NEGATIVE); LEUKOCYTE ESTERASE,URINE NEGATIVE (NEGATIVE); NITRITE,URINE NEGATIVE (NEGATIVE); OCCULT BLOOD,URINE NEGATIVE (NEGATIVE); PH,URINE 6.5 (5.0-8.0); PROTEIN,URINE NEGATIVE (NEGATIVE); UROBILINOGEN,URINE 0.2 EU/dL (0.2-1.0)
[2023-01-08 14:28] LABS: AMORPHOUS SEDIMENT,URINE NOT SEEN; BACTERIA,URINE NOT SEEN; EPITHELIAL CELLS,URINE NOT SEEN; MUCUS,URINE NOT SEEN; RBC,URINE 0-5 (0-5); WBC,URINE 0-5 (0-5)
== END 2023-01-08 14:38 | disposition other institution (70) ==
LOC: JP.ED 12:39
DX: S06.6X0A Traumatic subarachnoid hemorrhage without loss of consciousness, initial encounter (principal); I48.91 Unspecified atrial fibrillation; I25.10 Atherosclerotic heart disease of native coronary artery without angina pectoris; I11.0 Hypertensive heart disease with heart failure; I50.9 Heart failure, unspecified; E78.00 Pure hypercholesterolemia, unspecified; J44.9 Chronic obstructive pulmonary disease, unspecified; E66.9 Obesity, unspecified; Z91.048 Other nonmedicinal substance allergy status; Z79.899 Other long term (current) drug therapy; Z68.29 Body mass index [BMI] 29.0-29.9, adult; Z79.82 Long term (current) use of aspirin; W19.XXXA Unspecified fall, initial encounter
CPT/HCPCS: 70450; 81001; 99285